=== PATIENT | male | born 1950 | race Caucasian/White ===

== ENCOUNTER 2020-11-13 08:59 | Outpatient (CLI) | payer MEDICARE, SELFPAY ==
--- NOTE | ~2020-11-13 | US_ITS ---
EXAMINATION: US abdomen complete DATE: 11/13/2020 09:49 INDICATION: Pancytopenia TECHNIQUE: Multiple grayscale and Doppler ultrasound images of the abdomen were obtained. COMPARISON: None available FINDINGS: The pancreas is obscured by bowel gas. The liver is normal with normal echogenicity and ech otexture. No surface nodularity. Normal hepatopetal flow in the main portal vein. The gallbladder is normal with no abnormal wall thickening, pericholecystic fluid or stones. The normal common bile duct measures 2 mm. There was no sonographic Boss sign. The visualized portions of the aorta and inferi or vena cava are normal. The right kidney measures 8.4 x 5.0 x 5.0 cm. The left kidney measures 8.8 x 4.4 x 4.3 cm. The kidney s demonstrate normal parenchymal echogenicity. There is no hydronephrosis. The spleen is normal in ap pearance and measures 10.9 cm. IMPRESSION: 1. No sonographic correlate for the patient's symptoms. Reviewed, dictated and finalized at location A.
== END 2020-11-13 09:00 | disposition home or self-care (01) ==
PROVIDERS: PCP Internal Medicine; Visit Provider Internal Medicine Hematology & Oncology
DX: D61.818 Other pancytopenia (principal)
CPT/HCPCS: 76700

== ENCOUNTER 2021-01-01 01:14 | Day surgery (SDC) | payer MEDICARE, SELFPAY ==
--- NOTE | ~2021-01-01 | BM_ITS ---
EXAMINATION: CCL bone marrow asp w bx diag DATE: 01/01/2021 09:52 INDICATION: Pancytopenia. TECHNIQUE: A time-out was performed to verify the patient's name, date of , and procedure to b e performed. The procedure including the risks, benefits, and alternatives was discussed with the pat ient. Risks discussed included bleeding and infection. The patient understood the risks and agreed to proceed. The skin overlying the left ilium was prepped and draped in usual sterile fashion. Anesth etic was administered with 1% lidocaine subcutaneously. 50 mcg fentanyl IV was given for pain control . An 11 gauge needle was inserted into the ilium with fluoroscopic guidance. Bone marrow was aspirat ed. An 8 gauge needle was then inserted into the ilium with fluoroscopic guidance. A core bone marrow biopsy was obtained. There were no immediate complications. Fluoroscopy exposure time was 0.1 minute s. The total number of images was 12. FINDINGS: Real-time fluoroscopy demonstrates a marker overlying the left posterior superior iliac spi ne. IMPRESSION: 1. Fluoro-guided bone marrow aspiration. 2. Fluoro-guided bone marrow core biopsy. Reviewed, dictated and finalized at location A.
[2021-01-01 08:18] VITALS: BP 124/71; PULSE 51; RESP 18; TEMP 36.1; O2SAT 99; BMI 23.8
[2021-01-01 08:34] LABS: Eosinophils Percent Auto 1.3 % (0-4.4); Hemoglobin 10.1 g/dL (14.0-18.0); Immature Platelet Fraction Pct 7.8 % (0.9-11.2); Lymphocytes Absolute Auto 0.66 K/mm3 (0.9-3.2); Lymphocytes Percent Auto 41.8 % (18.3-44.2); Mean Corpuscular HGB Conc 33.7 g/dl (32-36); Mean Corpuscular Hemoglobin 31.3 pg (26-34); Mean Corpuscular Volume 92.9 fl (80-100); Mean Platelet Volume 11.5 fl (7.4-10.4); Monocytes Absolute Auto 0.1 K/mm3 (0.1-0.6); Monocytes Percent Auto 3.8 % (2.6-8.5); Neutrophils Absolute Auto 0.8 K/mm3 (1.3-6.7); Neutrophils Percent Auto 53.1 % (45.5-73.1); Platelet Count Result 64 k/mm3 (150-375); Red Blood Count 3.23 M/mm3 (4.6-6.20); Red Cell Distribution Width 14.6 % (11.5-14.5)
[2021-01-01 08:37] LABS: White Blood Count 1.6 K/mm3 (4.5-10.0)
--- NOTE | 2021-01-01 09:39 | SUR.OPER ---
Prior to this procedure, patient stated he has been taking his Plavix regularly, except for this morning's dose. Dr. Portillo notified and advised to proceed with procedure as planned. Dr. Portillo also notified of patient's outdated H & P obtained prior to the start of this procedure. Dr. Portillo states to continue with procedure.
[2021-01-01 09:50] VITALS: BP 126/61; PULSE 55; RESP 15; TEMP 36; O2SAT 100
[2021-01-01 10:00] VITALS: BP 120/66; PULSE 50; RESP 17; O2SAT 100
[2021-01-01 10:15] VITALS: BP 105/73; PULSE 55; RESP 17; O2SAT 100
[2021-01-01 10:30] VITALS: BP 126/71; PULSE 61; RESP 16; O2SAT 100
--- NOTE | 2021-01-01 11:09 | SUR.PHASEII ---
Bone marrow biopsy instructions and discharge instructions reviewed with patient at discharge. Patient verbalizes understanding. PIV removed intact, dressing applied. Patient escorted to front of building with staff where he was taken home his .
== END 2021-01-01 10:45 | disposition home or self-care (01) ==
PROVIDERS: PCP Internal Medicine; Referring Provider Internal Medicine Hematology & Oncology; Visit Provider Radiology Diagnostic Radiology
DX: D46.9 Myelodysplastic syndrome, unspecified (principal); E53.8 Deficiency of other specified B group vitamins
CPT/HCPCS: 36415; 38222; 85025; 85055; 88184; 88185; 88305; 88311; 88313; 88342; 88360; J1642; J3010; J7040

== ENCOUNTER 2022-03-31 09:25 | Emergency (ER) | payer MEDICARE, SELFPAY ==
[2022-03-31 09:58] VITALS: BP 123/75; PULSE 80; RESP 18; TEMP 36.2; O2SAT 99
--- NOTE | 2022-03-31 10:07 | ED.EXTPRO ---
HPI - Extremity Problem General Chief complaint: Extremity Problem,Nontraumatic Stated complaint: Unspecified Time Seen by Provider: 03/31/22 10:08 Source: patient Mode of arrival: ambulatory Limitations: no limitations History of Present Illness HPI Narrative: 71-year-old male presented for complaint of bilateral knee pain, right worse than left, over the last five days. He endorses a history of myelodysplastic syndrome, on chemo, and states he has flare-ups of joint pain. He was seen at an outside ER in December and was given oxycodone and prednisone, which he is requesting refills. Has been using walker for assistance. Denies falls. PCP and oncologist at [facility]. Has not contacted them for refills. Related Data Allergies Allergy/AdvReac Type Severity Reaction Status Date / Time alprazolam Allergy Mild headaches Verified 03/31/22 10:03 escitalopram Allergy Mild nightmares Verified 03/31/22 10:03 Review of Systems Review of Systems: CONSTITUTIONAL: Denies body aches, fever, chills EYES: Denies visual changes ENT: Denies rhinorrhea, congestion CARDIOVASCULAR: Denies chest pain, palpitations, or edema. RESPIRATORY: Denies cough or dyspnea. GASTROINTESTINAL: Denies abdominal pain, nausea, vomiting, or diarrhea. SKIN: Denies rash, itching, or wounds. MUSCULOSKELETAL: per HPI NEUROLOGIC: Denies headache, numbness, tingling, or weakness. All systems reviewed & are unremarkable except as noted in HPI and below PMFSH Past Medical History Medical History Carpal tunnel syndrome on both sides (~11/2018) Social History Social History Smoking packs per day: 1 Smoking cigarettes per day: 20.0 Years smoked: 20 Smoking pack-years: 20.00 Smoking status: Former smoker Second hand tobacco smoke exposure: No Alcohol intake: current Drinks per week: 10 Substance use: never Comments At time of signature, I have reviewed and agree with nursing past medical, surgical, social and family history unless otherwise noted. Please see nursing chart for further information. There is no relevant family history pertinent to the presenting complaint Exam Narrative: GENERAL: Well-appearing CHEST: Speaks in full sentences. No respiratory distress. HEART: Regular rate and rhythm. Normal and equal peripheral pulses. EXTREMITIES: Right knee erythema, mild swelling, and tenderness superior to patella; knee has slightly limited range of motion, endorses pain with movement. No open wounds; alignment normal, pulse palpable and equal bilaterally, skin warm, dry, pink. Capillary refill less than 3 seconds. Has walker, gait steady with assistive device SKIN: Warm, dry, no rash. NEURO: Alert and oriented x3. PSYCH: Normal mood and affect Course Course Emergency Course: Patient is aware of diagnosis, understands and agrees to treatment plan. Anticipatory guidance given. Patient agrees to follow-up as directed and is aware of reasons to seek care at the emergency department. Portions of this record may have been created with voice recognition software Level of Care: Express Care Visit Vital Signs Vital signs: Reviewed MDM - Extremity (Nontraumatic) MDM Narrative Medical decision making narrative: Patient is informed oxycodone will not be refilled at this facility. Prescription for the prednisone can be refilled. Patient states he thinks the prednisone helped him the most. Advised supportive measures and signs/symptoms to go to the ER. Pt is appropriate for outpt treatment and f/u With PCP and oncologist. Differential Diagnosis Differential diagnosis: Likely gout, cellulitis and other ( arthralgia, tendinitis, bursitis) Discharge Plan Discharge Clinical Impression: Arthralgia of both knees Patient Disposition: Home, Self-Care Condition: Stable Instructions: Knee Pain (ED) Additional Instruct
== END 2022-03-31 10:20 | disposition home or self-care (01) ==
PROVIDERS: Emergency Provider Nurse Practitioner Family
DX: M25.562 Pain in left knee (principal); M25.561 Pain in right knee; Z87.891 Personal history of nicotine dependence
CPT/HCPCS: 99213; G0463